=== PATIENT | female | born 1945 | race Caucasian/White ===

== ENCOUNTER 2016-10-14 09:35 | Inpatient (IN) | payer MEDICARE ==
[~2016-10-14 09:35] MED LIST: RINGERS SOLUTION,LACTATED 1,000 ML IV PRN; ceFAZolin SODIUM 2 GM in DEXTROSE 5 % IN WATER 50 ML IV PRN
--- OUTSIDE RECORDS SUMMARY | 2016-10-14 09:40 | XMS REPORT | Continuity of Care Document ---
:1945 Author Organization [facility] ([facility]) Address [address] [place] [address] Phone [phone] Care Team Providers Name Role Phone Ann Boone Primary Care Provider [phone] Source Comments This disclosure is being made pursuant to the Care Everywhere program, applicable federal and state laws, and may not contain all informaitonavailable regarding this patient.[facility] ([facility]) Active Allergies and Adverse Reactions No Known Allergies Current Medications Prescription Sig. Disp. Refills Start Date End Date Status levothyroxine 50 mcg Take 50 mcg by 2 08/26/2016 Active tablet mouth daily. oxybutynin 5 mg tablet Take 5 mg by mouth Active daily. Active Problems Problem Noted Date Calculus of common bile duct and gallbladder 09/02/2016 Tobacco use 09/02/2016 Excessive drinking alcohol 09/02/2016 Hypothyroidism due to acquired atrophy of thyroid 09/02/2016 Most Recent Encounters Date Type Specialty Providers Description 09/24/2016 Telephone Med GI/Hepatology My Reddy Chief Comp: Procedure 09/18/2016 Telephone Med GI/Hepatology Lela Araiza Chief Comp: Information Before Appointment 09/02/2016 Office Visit Med GI/Hepatology Jenaro Frankel Dx: Calculus of Lizandro Sands MD common bile duct and gallbladder (Primary Dx) 09/02/2016 Orders/Notes Med GI/Hepatology Jenaro Frankel Dx: Calculus of bile Lizandro Sands MD duct without cholecystitis with obstruction (Primary Dx) 08/30/2016 Hospital Encounter Radiology Jenaro Frankel Dx: Obstructive Lizandro Sands MD jaundice 08/30/2016 Orders/Notes Med GI/Hepatology Jenaro Frankel Dx: Obstructive Lizandro Sands MD jaundice (Primary Dx) 08/30/2016 Telephone Med GI/Hepatology Jenaro Frankel Chief Comp: Referral Lizandro Sands MD Immunizations Name Dates Previously Given Next Due Pneumococcal Conjugate, PCV13 (Prevnar 13) 09/02/2016 Social History Tobacco Use Types Packs/Day Years Used Date Heavy Tobacco Smoker Cigarettes 1.5 55 Smokeless Tobacco: Never Used Tobacco Cessation:Ready to Quit: Yes; Counseling Given: Yes Comments: Alcohol Use Drinks/Week oz/Week Comments Yes 20 Cans of beer Last Filed Vital Signs Vital Sign Reading Time Taken Blood Pressure 163/91 09/02/2016 2:30 PM REFRIGERATION PERSON Pulse 109 09/02/2016 2:30 PM REFRIGERATION PERSON Temperature 36.8 C (98.2 F) 09/02/2016 2:30 PM REFRIGERATION PERSON Respiratory Rate - - Height 1.626 m (5' 4") 09/02/2016 2:30 PM REFRIGERATION PERSON Weight 67.95 kg (149 lb 12.8 oz) 09/02/2016 2:30 PM REFRIGERATION PERSON Body Mass Index 25.7 09/02/2016 2:30 PM REFRIGERATION PERSON Oxygen Saturation - - Plan of Care Date Type Specialty Providers Description 10/16/2016 Hospital Encounter Med GI/Hepatology Jenaro Frankel Chief Comp: Patient Lizandro Sands MD Reported Reason For [address] [place] [address] [phone] (Fax) Health Maintenance Due Date Last Done Comments Hepatitis B Vaccine (1 of 3 - Primary Series) 1945 Tdap Vaccine 1954 Lipid Disorder Screening 1961 Td Vaccine 1961 Mammogram 1983 Colonoscopy 03/25/1993 Zoster Vaccine 2003 Osteoporosis Screening (DXA Bone Density) 2008 Influenza Vaccine: Seasonal (#1) 01/29/2016 Pneumococcal Vaccine (2 of 2 - PPSV23) 09/02/2017 09/02/2016 Results from Last 3 Months DIFFERENTIAL (09/02/2016 2:25 PM) Component Value Range % Neutrophils-Auto Diff 68.3 % Neutrophils-Auto Diff 6030 5623-9617 /MM3 % Lymphocytes-Auto Diff 22.2 % Lymphocytes-Auto Diff 6837 840-0948 /MM3 % Monocytes-Auto Diff 6.6 % Monocytes-Auto Diff 580 130-860 /MM3 % Eosinophils-Auto Diff 1.9 % Eosinophils-Auto Diff 170 40-390 /MM3 % Basophils 0.5 % Basophils-Auto Diff 40 10-136 /MM3 % Immature Granulocytes-Auto Diff 0.5 % Immature Granulocytes-Auto Diff 40 /MM3 Specimen Whole Blood CBC (COMPLETE BLOOD COUNT) (09/02/2016 2:25 PM) Component Value Range WBC Count 8.8 3.7-10.5 K/MM3 RBC Count 5.09 4.00-5.20 M/MM3 Hemoglobin 16.0(H) 11.9-15.5 g/dL Hematocrit 49(H) 35-47 % MCV (Mean Corpuscular Volume) 95 82-99 FL MCH (Mean Corpuscular Hemoglobin) 31 25-35 PG MCHC (Mean Corpuscular Hemoglobin Concentration) 33 32-36 % Platelet Count 301 150-400 K/MM3 MPV (Mean Platelet Volume) 10.5 9.4-12.3 FL RBC Dist Width-STD 47.8(H) 36.4-46.3 FL RBC Distrib Width 13.3 9.0-14.5 % Nucleated RBC 0 /100 WBC Specimen Whole Blood PT/INR (PROTHROMBIN TIME/INR) VENOUS (09/02/2016 2:25 PM) Component Value Range PT (Prothrombin Time) 10 9-12 secs INR 0.9 <4.0 Specimen Blood LIPASE (09/02/2016 2:25 PM) Component Value Range Lipase 98(H) 13-60 U/L Specimen Blood HEPATIC FUNCTION PANEL (09/02/2016 2:25 PM) Component Value Range Albumin 3.9 3.4-4.8 g/dL ALP 178(H) 35-104 U/L Bilirubin Total 0.6 <=1.2 mg/dL Bilirubin, Direct <0.2 0.0-0.2 mg/dL AST 25Comment: 0-32 U/L Adult reference ranges updated on 05/25/13 at 830am ALT 38(H)Comment: 0-33 U/L The upper limit of normal for alanine aminotransferase (ALT) reference ranges for adults is controversial with some authorities recommending limit as low as 30 U/L for males and 19 U/L for females. Th ere is increased incidence of subclinical liver disease (e.g., early steatohepatitis) in patients with ALT values in the range of 31-41 U/L for males and 20-33 U/L for females. ALT values should alway s be interpreted in conjunction with clinical history, physical examination findings, and, if applicable, data from other diagnostic tests. Total Protein 8.1(H) 6.0-8.0 g/dL Specimen Blood CBC WITH DIFFERENTIAL (09/02/2016 2:25 PM) Specimen Whole Blood Narrative The following orders were created for panel order CBC WITH DIFFERENTIAL. Procedure Abnormality Status --------- ------ CBC (COMPLETE BLOOD COUNT)[[id number]] AbnormalFinal result DIFFERENTIAL[[id number]] Final result Please view results for these tests on the individual orders. EXTERNAL US - STORE ONLY (08/30/2016 3:37 PM)
[2016-10-14] MEDS ORDERED: MUPIROCIN 22 APPL TUBE TP ONE (11:42)
[2016-10-14] MEDS ORDERED: BUPIVACAINE HCL/EPINEPHRINE 50 ML VIAL IJ ONE ×2 (11:42)
[2016-10-14] MEDS ORDERED: ceFAZolin SODIUM 2 GM in DEXTROSE 5 % IN WATER 100 ML IV ONE ×2 (14:34)
[2016-10-14] MEDS ORDERED: ceFAZolin SODIUM 1 GM VIAL IV ONE (14:35)
[2016-10-14] MEDS ORDERED: RINGERS SOLUTION,LACTATED 1,000 ML IV ONE (15:30)
[2016-10-14] MEDS ORDERED: ONDANSETRON HCL/PF 2 MG/ML VIAL IV PRN (16:03)
[2016-10-14] MEDS ORDERED: MORPHINE SULFATE 4 MG/ML SYRG IV PRN (16:03)
[2016-10-14] MEDS ORDERED: ceFAZolin SODIUM 2 GM in DEXTROSE 5 % IN WATER 100 ML IV SCH ×2 (16:15)
--- OUTSIDE RECORDS SUMMARY | 2016-10-14 16:32 | XMS REPORT | Continuity of Care Document ---
:1945 Author Organization [facility] ([facility]) Address [address] [place] [address] Phone [phone] Care Team Providers Name Role Phone Ann Boone Primary Care Provider [phone] Source Comments This disclosure is being made pursuant to the Care Everywhere program, applicable federal and state laws, and may not contain all informaitonavailable regarding this patient.[facility] ([facility]) Active Allergies and Adverse Reactions No [...] Taken Blood Pressure 163/91 09/02/2016 2:30 PM MILL BEAM FITTER Pulse 109 09/02/2016 2:30 PM MILL BEAM FITTER Temperature 36.8 C (98.2 F) 09/02/2016 2:30 PM MILL BEAM FITTER Respiratory Rate - - Height 1.626 m (5' 4") 09/02/2016 2:30 PM MILL BEAM [employer]TER Weight 67.95 kg (149 lb 12.8 oz) 09/02/2016 2:30 PM MILL BEAM [employer]TER Body Mass Index 25.7 09/02/2016 2:30 PM MILL BEAM FITTER Oxygen Saturation - - Plan of Care Date Type Specialty Providers Description 10/16/2016 Hospital Encounter Med GI/Hepatology Jenaro Frankel Chief Comp: Patient Lizandro Sands MD Reported Reason For [address] [place] [address] [phone] (Fax) Health Maintenance Due Date Last Done [...] Neutrophils-Auto Diff 68.3 % Neutrophils-Auto Diff 6030 0252-8525 /MM3 % Lymphocytes-Auto Diff 22.2 % Lymphocytes-Auto Diff 7120 202-2628 /MM3 % Monocytes-Auto Diff 6.6 % Monocytes-Auto [...] Abnormality Status --------- ------ CBC (COMPLETE BLOOD COUNT)[[id number]] AbnormalFinal result DIFFERENTIAL[[id number]] Final result Please view results for these tests on the individual orders. EXTERNAL US - STORE ONLY (08/30/2016 3:37 PM)
[2016-10-14] MEDS: RINGERS SOLUTION,LACTATED 1,000 ML IV PRN (17:14)
[2016-10-14] MEDS: PANTOPRAZOLE SODIUM 40 MG in NORMAL SALINE 100 ML IV SCH (17:15)
[2016-10-14] MEDS: oxyCODONE HCL/ACETAMINOPHEN 1 TAB TABLET PO PRN ×2 (17:20→21:20)
[2016-10-14] MEDS: ceFAZolin SODIUM 2 GM in DEXTROSE 5 % IN WATER 50 ML IV SCH ×2 (17:42)
[2016-10-14] MEDS ORDERED: POLYVINYL ALCOHOL 150 DROP BTL EACHEYE PRN (20:22)
--- NOTE | 2016-10-14 21:19 | OR ---
Operative Report - Dictated Report Narrative: DATE OF OPERATION: 10/14/2016 PREOPERATIVE DIAGNOSIS: Cholelithiasis, cholecystitis, known choledocholithiasis POSTOPERATIVE DIAGNOSIS: Chronic Cholecystitis, cholelithiasis, tangential common bile duct injury, choledocholithiasis OPERATION: Laparoscopic converted to open cholecystectomy with common bile duct exploration and placement of T-tube SURGEON: DWIGHT Hartmann MD ANESTHESIA Gen. endotracheal Sourav Monson CRNA INDICATIONS FOR PROCEDURE: The patient is a 71-year-old female referred by Dr. Boone. The patient was initially seen by her in early August with complaints of postprandial abdominal discomfort. Abdominal ultrasound revealed cholelithiasis and choledocholithiasis. She was referred to the [facility] for consideration of ERCP and cholecystectomy. Decision was made for her to have the gallbladder operation here and then ERCP on 10/16/2016. FINDINGS: Cholelithiasis with chronic cholecystitis and previous inflammation in the anshul hepatis. Tangential common bile duct injury from presumed cystic duct avulsion. Choledocholithiasis NARRATIVE OF PROCEDURE: The patient was identified preoperatively. Prior to the administration of anesthetic a multidisciplinary timeout observed. With the patient in the supine position, SCDs were placed, 2 g of intravenous Ancef administered, and general endotracheal anesthetic administered. The patient's abdomen was prepped with Betadine solution and a generous operating field outlined with 4 sterile towels. The remainder the patient was covered with a sterile disposable drape. An infraumbilical skin incision was made. Dissection was carried along the umbilical stalk until the fascia of the linea alba was encountered. This was incised. The peritoneum was then elevated and incised to allow entry into the abdomen under direct vision. A Hussan cannula was placed, and the abdomen insufflated with CO2. The laparoscopic camera was introduced and the abdomen briefly explored. Those portions of the liver, stomach, small bowel, and colon visualized appeared normal. Only the apex of the gallbladder was visible. There was no acute inflammation. Next under direct vision 3 additional working ports were inserted through separate skin incisions, one in the subxiphoid, one in the right upper quadrant, and one in the right flank. The apex of the gallbladder was retracted cephalad revealing multiple omental adhesions to the body and neck of the gallbladder. The gallbladder was decompressed with a needle and the puncture site grasped for retraction. The omental adhesions were then gradually developed by blunt, scissor, and electrocautery dissection. The duodenal sweep was adherent and was gradually returned to an anatomic position. At this juncture additional adhesions to the expected location of the cystic duct were gradually explored and released following the neck of the gallbladder distally until what was felt to be the cystic duct was identified. This was gradually encircled with clamp dissection. At this juncture bile was noted from a small opening. The distal and of the gallbladder side of the cystic duct could be identified with a short string of posterior wall attached to what appeared to be a short tangential tear in the common bile duct. A Cholangiocath was inserted and could be passed proximally and distally indicating that this was indeed the common bile duct. The catheter was passed distally, the balloon was inflated/withdrawn and in this manner 3 faceted stones were removed. The catheter would not pass further distally indicating additional stones (2 additional stones are suspected from previous ultrasound), and as the case would need to be converted to an open operation further attempts were not made. The upper abdomen was irrigated clean with saline, and by palpation on the anterior abdomen the location of a right subcostal skin incision was outlined with a marking pen to provide the most advantageous open exposure. The working ports were withdrawn under direct vision to ensure entry site hemostasis, the Hussan cannula was removed and the pneumoperitoneum allowed to escape. Sponge needle and instrument counts at this time were correct. The fascia and peritoneum at the umbilicus were approximated with interrupted sutures of 0 Vicryl. Subcutaneous space was obliterated with a single suture of 3-0 chromic. The umbilical skin was secured with interrupted vertical mattress sutures of 4-0 nylon. The subxiphoid and right lateral port sites were approximated with interrupted vertical mattress sutures of 4-0 nylon. At this juncture conference was held with the family to explain the situation and need for conversion to an open procedure. It was noted that there are no T tubes at [facility] and arrangements were made for some to be brought from [facility]. A short right subcostal skin incision was made. Dissection was carried through subcutaneous tissue with electrocautery until the fascia of the rectus sheath was encountered. This was divided. The lateral portion of the rectus muscle was then elevated and divided with electrocautery. The posterior rectus sheath/ peritoneum was then incised to allow entry to the abdomen under direct vision. Using Moseley retractors and a rolled laparotomy sponge adequate exposure of the anshul hepatis and gallbladder was obtained. The opening in the common duct was readily identified. Normal saline was injected in the plane between the gallbladder and liver bed and the gallbladder was removed from the apex down using blunt and electrocautery dissection. The cystic artery was identified doubly clipped and divided. The gallbladder was passed to the back table and and submitted to pathology. Stay sutures of 4-0 chromic were then placed in the ends of the choledochotomy. A 16 Filipino T-tube was fashioned and placed in the opening. It was secured with 2 interrupted sutures of 4-0 Vicryl and the previously placed stay sutures of 4-0 chromic. The catheter was aspirated with free flow of bile. There was free flow of normal saline irrigation with no evidence of leak. The upper abdomen was then irrigated with saline and suctioned clean. The area appeared hemostatic. The T-tube was brought out through the right upper quadrant port site and secured to the skin with a #1 Prolene suture. It was connected to a drainage device. After receiving a correct sponge needle and instrument count attention was turned to closing the abdomen. The peritoneum and posterior rectus sheath were approximated with interrupted sutures of 0 Vicryl anterior rectus sheath was approximated with interrupted sutures of 0 Vicryl subcutaneous tissue was approximated with 4-0 chromic the skin was secured with sweta. 0.5% Marcaine with epinephrine was used for local anesthetic infiltration. The operative sites were washed and dried dressings of Bactroban ointment and Band-Aids were applied to the 2 small port sites. The umbilical incision was dressed with Bactroban ointment folded 2 x 2 large Band-Aid and Medipore tape. The subcostal incision and drain site were dressed with Bactroban ointment, folded 4 x 4 and Medipore tape. The operative procedure was terminated at this point. The patient tolerated the anesthetic and procedure well. There was no measurable blood loss. The gallbladder and stones were submitted to pathology. She was transferred to the recovery room awake, extubated, and in stable condition. The case was discussed with Gabbie Monson RN with the [facility] GI/Hepatology Service. Plan is to admit the patient here for postop care and then follow her in the office until she is sufficiently recovered to lay on her stomach for ERCP. Reviewed and electronically signed
[2016-10-15] MEDS: ceFAZolin SODIUM 2 GM in DEXTROSE 5 % IN WATER 50 ML IV SCH ×4 (00:56→08:45)
[2016-10-15] MEDS: RINGERS SOLUTION,LACTATED 1,000 ML IV PRN ×2 (02:38→19:55)
[2016-10-15] MEDS: oxyCODONE HCL/ACETAMINOPHEN 1 TAB TABLET PO PRN ×4 (02:38→19:58)
[2016-10-15 06:20] LABS: Albumin * 2.5 gm/dl (3.4-5.0); BUN/Creatinine Ratio 11.5 (9.0-21.6); Bilirubin, Total 0.6 mg/dL (0.0-1.1); Ca. Corrected For Albumin 9.2 mg/dL (8.4-10.2); Calcium * 8.3 mg/dL (7.9-10.9); Carbon Dioxide 26.2 mmol/L (24-32.6); Potassium 4.2 mmol/L (3.4-4.6); Total Protein 6.6 gm/dL (6.2-8.2)
[2016-10-15] MEDS: LEVOTHYROXINE SODIUM 50 MCG TABLET PO SCH (06:25)
[2016-10-15] MEDS ORDERED: BISACODYL 5 MG TABLET.DR PO ONE (07:03)
[2016-10-15] MEDS ORDERED: ENOXAPARIN SODIUM 40 MG/0.4 ML SYRG SC SCH (15:45)
[2016-10-15] MEDS: PANTOPRAZOLE SODIUM 40 MG in NORMAL SALINE 100 ML IV SCH (16:49)
--- NOTE | 2016-10-15 19:21 | PN ---
Dictated Progress Note - Date and Time Seen: Date: 10/15/16 Time: 19:16 - second visit - Progress Note Narrative: Vital Signs - Last Taken Temp 37 C 10/15/16 11:20 Pulse 81 10/15/16 11:20 Resp 18 10/15/16 11:20 BP 128/89 10/15/16 11:20 Pulse Ox 97 10/15/16 11:20 Abnormal/Pending Laboratory Last 24 HRS 10/15/16 06:00 Est GFR (Non-Af Amer) 46 L AST 61 H Albumin 2.5 L POD #1 VS have been normal. Tolerating advanced diet. OOB with minimal assistance. Pain controlled on po Percocet. Has expected T tube output. LFT's good. Dressings dry Impression: Doing very well thusfar Plan: She is to walk again tonight. Will saline lock IV A T tube drainage bag has been ordered and should be here in AM Discussed discharge plans with her and her daughter, for tentative D/C tomorrow
[2016-10-16] MEDS: oxyCODONE HCL/ACETAMINOPHEN 1 TAB TABLET PO PRN ×3 (01:28→12:41)
[2016-10-16] MEDS: LEVOTHYROXINE SODIUM 50 MCG TABLET PO SCH (06:57)
--- NOTE | 2016-10-16 08:15 | DS ---
(1) Chronic cholecystitis due to cholelithiasis with choledocholithiasis Problem: Acute Description of Stay: Had laparoscopic converted to open cholecystectomy with exploration of CBD and placement of T tube. VS remained normal, tolerated po intake, pain controlled, incisions clean, good T tube function and relatively normal LFT's OOB independently. Home with 1 week follow-up. Originally planned ERCP at [facility] will be postponed and rescheduled as OP. Procedures Performed: see notes below - laparoscopic converted to open cholecystectomy with CBD exploration and placement of T tube Discharge Disposition: Home self care Disposition: Home self-care Condition: Good Discharge Activity: Activity as tolerated, No Lifting Discharge Diet: Low fat/chol Referrals: Ann Boone MD [Primary Care Provider] - Problem Oriented Discharge Instructions to Patient/Family: Smoking Cessation, Tips for Success, [id number], Open Cholecystectomy, Care After Additional Patient Instructions (free text): [facility] courtesy visit. Fax discharge and call report. Follow up with Dr Hartmann in 1 week Prescriptions (Any new or edited meds): oxyCODONE HCL/ACETAMINOPHEN [Percocet 5 MG/325 MG] 2 tab PO Q4H PRN #30 tablet PRN Reason: Moderate Pain Complete Home Medications List: Complete Home Medication List: Levothyroxine Sodium [Unithroid] 50 mcg PO DAILY 10/08/16 Oxybutynin Chloride [Ditropan Xl] 5 mg PO DAILY 10/08/16 oxyCODONE HCL/ACETAMINOPHEN [Percocet 5 MG/325 MG] 2 tab PO Q4H PRN #30 tablet 10/16/16
[2016-10-16] MEDS ORDERED: BISACODYL 5 MG TABLET.DR PO ONE (08:22)
[2016-10-16 10:34] VITALS: BP 145/74
== END 2016-10-16 14:20 | disposition home or self-care (01) | DRG 413 ==
LOC: AMB 09:35 → MS 14:02 → OBSVTOIN 10-15 14:02
PROVIDERS: ADMIT Surgery; ATTEND Surgery
PROC: 0F990ZZ Drainage of Common Bile Duct, Open Approach (ICD-10-PCS; 2016-10-14)
PROC: 0FJ44ZZ Inspection of Gallbladder, Percutaneous Endoscopic Approach (ICD-10-PCS; 2016-10-14)
PROC: 0FT40ZZ Resection of Gallbladder, Open Approach (ICD-10-PCS; principal; 2016-10-14 11:00)
DX: K80.45 Calculus of bile duct with chronic cholecystitis with obstruction (principal); E03.9 Hypothyroidism, unspecified
CPT/HCPCS: 36415; 47550; 47610; 80053; 88304; G0378